=== PATIENT | female | born 1965 | race Caucasian/White ===

== ENCOUNTER 2019-12-21 08:00 | Day surgery (SDC) | payer OTHER, SELFPAY ==
--- NOTE | 2019-12-21 | PATH_ITS ---
[facility] Accession Number: [id number] . 01 Material submitted: . colon - COLON POLYP AT 40 CM . 02 Diagnosis: Colon, Polyp at 40 cm, Biopsy: Tubular adenoma. MRV 12/24/2019 1304 Local . 02 Electronically signed: . Cassy Alfonso MD, Pathologist NPI- [id number] . 01 Gross description: . COLON POLYP AT 40 CM: Received in formalin is 1 fragment(s) of orr, soft tissue measuring 0.3 x 0.2 x 0.2 cm submitted entirely in 1 cassette(s) /QBJ 12/21/2019 2157 Local . 02 Pathologist provided ICD-10: D12.6 . 02 CPT . 773333 Performed at: 01 [facility] [address], [place], [place] [id number] MD Stuart Olivarez MD Phone: [phone] Performed at: 02 [facility] [address] [place], [place] [id number] MD Cassy Alfonso MD Phone: [phone]
[2019-12-21 08:19] VITALS: BP 118/71; PULSE 88; RESP 16; TEMP 36.1; O2SAT 99; BMI 26.2
[2019-12-21 08:26] VITALS: BMI 26.2
[2019-12-21] MEDS: SODIUM CHLORIDE 0.9% 1,000 ML 200 ML IV (08:28)
--- NOTE | 2019-12-21 08:35 | PM.HP.1 ---
History of Present Illness History of Present Illness Date Patient Seen: 12/21/19 Time Patient Seen: 08:35 Chief complaint: [id number] Narrative: This is a 54-year-old woman with history of hypothyroidism. She has never had a screening colonoscopy. She has denies any history of melena, hematochezia, unexplained weight loss, or unexplained abdominal pain. She denies any known family history of colon polyps or colon cancer. She has a previous tubal ligation, and breast lumpectomy, and says that she has had severe nausea vomiting after every procedure she has ever had. ROS: Thirteen system review is otherwise negative other than as mentioned below and in HPI. PE: GENERAL: Well groomed and cooperative. Appears stated age. Answers questions promptly and appropriately. Vital signs noted. HENT: Normocephalic, atraumatic. Hearing intact. Oral mucosa is pink and moist. EYES: Conjunctiva pink, sclera white, no periorbital swelling. CARDIOVASCULAR: Regular rate. No pedal edema. RESPIRATORY: Non-tachypneic, breathing comfortably on room air. GASTROINTESTINAL: Abdomen soft and non-distended GENITALURINARY: No flank tenderness. MUSCULOSKELETAL: Equal tone and mass bilaterally. SKIN: Warm, dry, soft, appropriate color for ethnicity. No other lesions, rashes, or wounds. NEURO: Alert and Oriented X 3. No gross sensory deficits, or cognitive issues. PSYCH: Appropriate affect and mood. Patient History Surgical History Status post breast lumpectomy Status post surgery (06/06/15) Status post tubal ligation Family & Social History Social History: household members spouse Tobacco & Substance use: Tobacco type cigarettes Smoking Status Former smoker alcohol intake current alcohol intake frequency a few times a month Meds Home Medications and Allergies Home Medications Medication Instructions Recorded Confirmed Type levothyroxine 88 mcg tablet 88 mcg PO DAILY 06/20/19 12/21/19 History Allergies Allergy/AdvReac Type Severity Reaction Status Date / Time No Known Drug Allergies Allergy Verified 12/21/19 08:13 Exam Vital Signs (past 8 hours): - 12/21/19 08:19 Temperature 97.0 F L Pulse Rate 88 Respiratory Rate 16 Blood Pressure 118/71 Pulse Oximetry 99 Oxygen Delivery Method Room Air Assessment & Plan Assessment and plan (1) At average risk for colon cancer: Current visit: Yes Status: Acute Assessment & Plan narrative: This is a 54-year-old woman at average risk for colon cancer, here for screening colonoscopy. Risks and benefits of colonoscopy and possible polypectomy were discussed the patient bleeding risk of bleeding, perforation, need for additional procedures. The patient desires to proceed with her colonoscopy. Time Spent With Patient Time with patient: 15-24 minutes Quality VTE Deep Vein Thrombosis/Pulmonary Embolism Present on Admission: No
--- NOTE | 2019-12-21 09:36 | PM.OP.ENDO ---
Operative Date/Time/Diagnoses Date of procedure: 12/21/19 Time of procedure: 09:37 Pre-op diagnosis: Average risk for colon cancer Post-op diagnosis: other (Single colon polyp, likely hyperplastic) Procedure & Clinicians Study performed: Colonoscopy, polypectomy x1 with cold forceps Same procedure as scheduled: Yes Indications: Average risk for colon cancer, appropriate age for screening colonoscopy Surgeon: Darby Rolon Procedure Notes SCOAP/Timeout: Performed Procedure in detail: The patient was brought to the room and placed in left lateral decubitus position with all bony prominences padded. A time-out was performed and then the patient was given procedural sedation starting with 3 mg of Versed and [100] mcg of fentanyl. Vitals were monitored throughout the procedure and remained stable. Once adequately sedated the procedure was begun. A rectal exam was performed revealing [no abnormalities]. The colonoscope was then introduced to the rectum and advanced to the cecum in the usual fashion. []The cecum was identified by the appendiceal orifice, the mucosal tri-fold, and the ileocecal valve. The scope was then retracted while rotating side to side and examining each mucosal fold. [There is a single polyp at 40 cm, which was completely removed with cold forceps.] At the conclusion of the procedure retroflexion was performed and [small grade 2 internal hemorrhoids without stigmata of bleeding were seen]. The scope was then withdrawn from the rectum the procedure was concluded. The patient tolerated the procedure well and was transferred to the PACU in stable condition. Scope withdrawal time: 9 Sedation minutes: 18 Findings: internal hemorrhoids and polyp Specimen(s): other (Single polyp from 40 cm) Complications: none Impression: Single hyperplastic polyp, and moderate internal hemorrhoid Post-procedure Recommendations: Colonscopy in 10 years (Will send letter with pathology results) Follow up: as needed Disposition: PACU
[2019-12-21] MEDS: fentaNYL 250 MCG/5 ML INJ IV (09:39)
[2019-12-21] MEDS: ONDANSETRON 4 MG/2 ML INJ IV (09:39)
[2019-12-21] MEDS: MIDAZOLAM 5 MG/5 ML VIAL IV (09:40)
[2019-12-21 09:42] VITALS: BP 129/100; PULSE 74; RESP 17; TEMP 36.7; O2SAT 99
[2019-12-21 09:47] VITALS: BP 104/65; PULSE 73; RESP 21; O2SAT 100
[2019-12-21 09:51] VITALS: BP 110/70; PULSE 71; RESP 20; O2SAT 98
[2019-12-21 09:53] VITALS: BP 105/61; PULSE 70; RESP 12; O2SAT 98
[2019-12-21 10:06] VITALS: BP 100/67; PULSE 67; RESP 16; TEMP 36.7; O2SAT 97
== END 2019-12-21 10:09 | disposition home or self-care (01) ==
PROVIDERS: Visit Provider Surgery
PROC: 0DJD8ZZ Inspection of Lower Intestinal Tract, Via Natural or Artificial Opening Endoscopic (ICD-10-PCS; CPT 45378; principal; 2019-12-21 09:15)
DX: Z12.11 Encounter for screening for malignant neoplasm of colon (principal); E03.9 Hypothyroidism, unspecified; K64.1 Second degree hemorrhoids; D12.6 Benign neoplasm of colon, unspecified
CPT/HCPCS: 45380; 99152; J2250; J2405; J3010